=== PATIENT | female | born 1980 | race Caucasian/White ===

== ENCOUNTER → 2016-07-09 | Outpatient (CLI) | payer OTHER ==
--- NOTE | 2016-07-09 17:48 | REP ---
Clinical: Contusion. Back pain. Technique: AP, lateral, bilateral oblique, and coned-down views. Findings: Alignment and lordosis is maintained. The vertebral bodies including transverse process and spinous processes are intact and normal. There is no evidence for acute fracture / compression injury or subluxation. No evidence for spondylolysis or spondylolisthesis. No significant degenerative change is noted. Impression: Normal lumbosacral spine radiograph series. Signed by Jamarcus Domínguez MD 07/09/2016 05:39 P
== END ==
LOC: M WUC 17:15
PROVIDERS: ATTEND Physician Assistant
DX: S30.0XXA Contusion of lower back and pelvis, initial encounter (principal); W18.30XA Fall on same level, unspecified, initial encounter; Y92.009 Unspecified place in unspecified non-institutional (private) residence as the place of occurrence of the external cause

== ENCOUNTER → 2019-05-14 | Outpatient (REF) | payer BC ==
[2019-05-14 18:10] LABS: CHLAMYDIA DNA AMPLIFICATION NEGATIVE (NEGATIVE); GC DNA AMPLIFICATION NEGATIVE (NEGATIVE)
== END ==
LOC: M SFHCLERA 13:38
PROVIDERS: ATTEND Nurse Practitioner Family
DX: R30.0 Dysuria (principal)

== ENCOUNTER → 2020-10-03 | Outpatient (CLI) | payer BC ==
--- NOTE | 2020-10-03 19:16 | REP ---
INDICATION: SPRAIN OF RIBS, INITIAL ENCOUNTER. COMPARISON: No comparison study.. TECHNIQUE: Five views including PA chest. Right rib series. FINDINGS: PA chest radiograph shows no evidence of pneumothorax or hydrothorax. Mediastinum is not widened. Pleural angles are sharp. Heart size is normal. Lung wright are clear. Multiple views of the right rib cage demonstrate intact right ribs. No rib fracture is seen. No bony destructive lesion is appreciated. IMPRESSION: Negative right rib radiographs. <Electronically signed by Chapito Davila > 10/03/20 [id number]
== END ==
LOC: M RAD 17:16
PROVIDERS: ATTEND Physician Assistant
DX: S23.41XA Sprain of ribs, initial encounter (principal); W18.30XA Fall on same level, unspecified, initial encounter; Y92.009 Unspecified place in unspecified non-institutional (private) residence as the place of occurrence of the external cause

== ENCOUNTER → 2020-10-24 | Outpatient (CLI) | payer BC ==
--- NOTE | 2020-10-25 00:41 | REP ---
INDICATION: ABD PAIN COMPARISON: None TECHNIQUE: Axial noncontrast images from the lung bases to the pubic symphysis with coronal and sagittal reformations. This CT examination was performed using the following dose reduction techniques: Automated exposure control, adjustment of mA and/or kv according to the patient's size, and use of iterative reconstruction technique. FINDINGS: Lung bases are clear. Visualized heart and pericardium normal. Liver, spleen, pancreas, gallbladder, bilateral adrenal glands and kidneys are normal. The enteric system is unremarkable and without obstruction or acute inflammatory process. Normal terminal ileum and appendix identified in the right lower quadrant. Pelvis demonstrates normal bladder and age-appropriate uterus/adnexa with IUD identified. No ascites. No free air. No adenopathy. No focal inflammatory stranding. Abdominal aorta without aneurysm. Musculoskeletal structures are intact and without acute osseous abnormality. IMPRESSION: No acute abdominopelvic pathology appreciated. <Electronically signed by Jamarcus Domínguez > 10/25/20 [id number]
== END ==
LOC: M RAD 17:37
PROVIDERS: ATTEND Physician Assistant
DX: R10.9 Unspecified abdominal pain (principal)

== ENCOUNTER → 2020-11-17 | Outpatient (CLI) | payer BC ==
--- NOTE | 2020-11-17 14:38 | REP ---
INDICATION: CARMEN DIAG MAMMO/R BREAST MASS; RIGHT BREAST MASS. COMPARISON: None, baseline study. TECHNIQUE: MLO and CC views bilateral breasts with tomosynthesis, additional compression views right breast upper outer quadrant. Reportedly there is a palpable lump, marked on the skin with a triangular marker. Focused right breast ultrasound. FINDINGS: Breast parenchyma is extremely dense bilaterally, limiting the sensitivity of the mammogram. There is no mammographic evidence of mass or architectural distortion. Scattered tiny calcifications are not clustered in any suspicious manner. Focused right breast ultrasound performed in the region of the palpable lump in the upper-outer quadrant. At the 12 o'clock position there is an anechoic cyst 5 x 3 x 6 mm, elastography interrogation demonstrates average KPa value 27.4. A hypoechoic nodule at 12 o'clock is slightly deeper, approximately 4 cm from the nipple, measuring 8 x 3 x 6 mm. It is wider than tall. Elastography interrogation demonstrates average KPa value 36.5. At 10 o'clock there is a cyst measuring 1.8 x 1.2 x 1.9 cm, KPa value 26.3. Also at 10 o'clock is a hypoechoic nodule 8 x 5 x 10 mm, KPa value 30.6. The Volpara volumetric breast density pattern is D. IMPRESSION: BIRADS/ACR category 4, suspicious. Dense breast parenchyma limits the sensitivity of the mammogram. There is no mammographic evidence of a mass. Ultrasound in the upper-outer quadrant of the right breast in the region of the palpable lump demonstrates 2 benign-appearing cysts. However, a hypoechoic nodule is identified at 12 o'clock approximately 4 cm from the nipple measuring 8 x 3 x 6 mm and another hypoechoic nodule is identified at 10 o'clock, approximately 7 cm from the nipple measuring 8 x 5 x 10 mm. I would recommend ultrasound-guided sampling of these 2 hypoechoic nodules, since they could be solid. This patient's Tyrer-Cuzick lifetime breast cancer risk assessment score is 12.4%. This mammogram was interpreted with the aid of an FDA-approved computer-aided detection system. The patient states she had a clinical breast exam in October 2020. The patient letter being requested is M4. RECOMMENDATION: Recommend ultrasound-guided sampling of 2 hypoechoic nodules upper-outer quadrant right breast. <Electronically signed by Garrick Zazueta > 11/17/20 [id number]
== END ==
LOC: M WHC 12:44
PROVIDERS: ATTEND Nurse Practitioner Family
DX: N63.12 Unspecified lump in the right breast, upper inner quadrant (principal)
CPT/HCPCS: 76642; 77066; G0279

== ENCOUNTER 2021-11-30 13:27 | Emergency (ER) | payer BC ==
[~2021-11-30] VITALS: Ht 165.1 cm; Wt 61.5 kg
[2021-11-30] MEDS ORDERED: NS 1,000 ML IV ONE (16:00)
[2021-11-30] MEDS ORDERED: METOCLOPRAMIDE INJ 10MG/2ML VIAL (J2765 PER 1) IV ONE (16:00)
[2021-11-30] MEDS ORDERED: KETOROLAC 30 MG/ML 1ML VIAL IV ONE (16:00)
[2021-11-30 16:16] LABS: BASO # 0.1 10^3/uL (0.0-0.2); BASO % 0.6 % (0.0-1.0); EOS # 0.2 10^3/uL (0.0-0.5); EOS % 2.4 % (0.0-3.0); HEMATOCRIT 39.4 % (36.0-47.0); HEMOGLOBIN 13.4 g/dl (12.0-15.5); LYMPH # 0.9 10^3/uL (1.5-5.0); LYMPH % 11.4 % (24.0-44.0); MEAN CORPUSCULAR HEMOGLOBIN 30.9 pg (27.0-33.0); MEAN CORPUSCULAR VOLUME 90.8 fl (80.0-96.0); MONO # 0.9 10^3/uL (0.0-0.8); MONO % 10.8 % (2.0-8.0); NEUTROPHILS # 6.1 10^3/uL (1.5-8.5); NEUTROPHILS % 74.4 % (36.0-66.0); PLATELET COUNT, AUTOMATED 219 10^3/uL (150-450); RED BLOOD COUNT 4.34 10^6/uL (4.00-5.40); WHITE BLOOD COUNT 8.2 10^3/uL (4.0-10.0)
[2021-11-30 16:36] LABS: BLOOD UREA NITROGEN 9 MG/DL (7-18); CALCIUM LEVEL 8.9 MG/DL (8.5-10.1); CARBON DIOXIDE LEVEL 25 MEQ/L (21-32); CHLORIDE LEVEL 107 MEQ/L (98-107); CREATININE FOR GFR 0.74 MG/DL (0.55-1.30); GLOMERULAR FILTRATION RATE > 60.0 (>58); GLUCOSE, FASTING 95 MG/DL (70-100); SODIUM LEVEL 140 MEQ/L (136-145)
[2021-11-30 17:43] VITALS: BP 100/62
== END 2021-11-30 17:52 | disposition home or self-care (01) ==
LOC: M ED 13:27
DX: R51.9 Headache, unspecified (principal)
CPT/HCPCS: 80048; 84702; 85025; 87486; 87581; 87633; 87798; 96361; 96374; 99284; J1885; J2765

== ENCOUNTER → 2023-02-06 | Outpatient (CLI) | payer BC | LOC: M WHC 09:20 | PROVIDERS: ATTEND Physician Assistant Medical | DX: N64.4 Mastodynia (principal); N64.9 Disorder of breast, unspecified ==